=== PATIENT | male | born 1980 | race Two or more races ===

== ENCOUNTER 2020-10-12 19:07 | Emergency (ER) | payer OTHER ==
[~2020-10-12] VITALS: Ht 180.3 cm; Wt 122.5 kg
[2020-10-12] MEDS ORDERED: DEPAKOTE ER500 MG PO (19:37)
[2020-10-12] MEDS ORDERED: LAMICTAL100 M1 PO (19:37)
[2020-10-12] MEDS ORDERED: KETO10TA2 PO (20:50)
== END 2020-10-12 21:17 | disposition home or self-care (01) ==
LOC: ER 19:07
DX: M25.562 Pain in left knee (principal)